=== PATIENT | male | born 1960 ===

== ENCOUNTER 2018-06-27 13:01 | Emergency (ER) | payer OTHER ==
[2018-06-27] MEDS ORDERED: Lidocaine Hydrochloride 5 ML INJ ONE (13:54)
--- NOTE | 2018-06-27 14:35 | RAD ---
PROCEDURE: Left Hand Radiographs. HISTORY: r/o fb COMPARISON: None. FINDINGS: BONES: Normal. No fracture. JOINTS: Normal. No osteoarthritic changes. SOFT TISSUES: No radiopaque foreign body identified. OTHER FINDINGS: None. IMPRESSION: No evidence of radiopaque foreign body.
[2018-06-27] MEDS ORDERED: Tmp-Smz 800 mg-160 mg DS Tab PO ONE (15:13)
[2018-06-27] MEDS ORDERED: Tetanus/Diphtheria Toxoids 0.5 ml Syringe IM ONE ×2 (15:14→15:22)
[2018-06-27] MEDS ORDERED: Tmp-Smz 800 mg-160 mg DS Tab ONE (15:22)
[2018-06-27 15:27] VITALS: BP 152/88; PULSE 86; RESP 20; TEMP 98.2
[2018-06-27 15:28] VITALS: O2SAT 100
--- NOTE | 2018-06-27 15:28 | C.PDOC ---
History Of Present Illness 57 y/o male pt presents to the ER c/o laceration to the left hand. Pt is right hand dominant. Pt reports he was working with metal at 12 pm today and a piece of metal caught his left hand. Pt has no other associated sx and complaints at this time. Time Seen by Provider: 06/27/18 13:55 Chief Complaint (Nursing): Abnormal Skin Integrity History Per: Patient History/Exam Limitations: no limitations Onset/Duration Of Symptoms: Hrs Current Symptoms Are (Timing): Still Present Location Of Injury: Left: Hand Quality Of Symptoms: denies: Painful, Itching, Swollen, Draining Past Medical History Reviewed: Historical Data, Nursing Documentation, Vital Signs Vital Signs: Last Vital Signs Temp 98.4 F 06/27/18 13:15 Pulse 89 06/27/18 13:15 Resp 18 06/27/18 13:15 BP 158/96 H 06/27/18 13:15 Pulse Ox 100 06/27/18 13:15 Family History: States: No Known Family Hx - Social History Hx Alcohol Use: No Hx Substance Use: No - Immunization History Hx Tetanus Toxoid Vaccination: No Hx Influenza Vaccination: No Review Of Systems Except As Marked, All Systems Reviewed And Found Negative. Constitutional: Negative for: Fever, Chills Skin: Positive for: Other (laceration on left hand ) Neurological: Negative for: Weakness, Numbness Physical Exam - Physical Exam Appears: Non-toxic, No Acute Distress Skin: Warm, Dry, No Rash Head: Atraumatic, Normacephalic Nose: Normal Oral Mucosa: Moist Throat: Normal Neck: Normal ROM, Supple Chest: Symmetrical Cardiovascular: Rhythm Regular Respiratory: Normal Breath Sounds Gastrointestinal/Abdominal: Soft, No Tenderness Back: No CVA Tenderness Extremity: Normal ROM (FROM on left hand; hand able to flex/ext ), Capillary Refill (<2 sec), No Deformity, No Swelling, Other (laceration on left hand palmar aspect over the first MC region. Laceration going from the proximal to distal MC about 7-8 cm. Laceraton is oozing, no active bleeding. ) Pulses: Left Radial: Normal Neurological/Psych: Oriented x3, Normal Speech, Normal Cognition, Normal Motor, Normal Sensation ED Course And Treatment O2 Sat by Pulse Oximetry: 100 (RA) Pulse Ox Interpretation: Normal - Other Rad left hand X-Ray: Read By Radiologist Interpretation: Accession No. : [id number]. Patient Name / ID : BENITA ADAMESL / [id number]. Exam Date : 06/27/2018 13:54:16 ( Approved ). Study Comment : Sex / Age : M / 57Y. Creator : Art Donahue MD. Dictator : Art Donahue MD. Brancher : Tobacco Hanger : Art Donahue MD. Approver2 : Report Date : 06/27/2018 14:32:08. My Comment : . PROCEDURE: Left Hand Radiographs. HISTORY: r/o fb. COMPARISON: None. FINDINGS: BONES: Normal. No fracture. JOINTS: Normal. No osteoarthritic changes. SOFT TISSUES: No radiopaque foreign body identified. OTHER FINDINGS: None. IMPRESSION: No evidence of radiopaque foreign body. Laceration - Laceration Repair left hand Wound Length (In cm): 7-8 Description Of Wound: Linear Wound Cleansed With: Betadine, Sterile Saline Anesthesia: Lidocaine 1% Wound Examination: Irrigated With Saline, No FB With Wound Exploration, No Tendon Injury With Wound Exploration Wound Closure: Suture (8) Suture Technique And Material Used: Interrupted, Prolene Wound Complexity: Simple Medical Decision Making Medical Decision Making: Impression: left hand laceration Plans: -- laceration repair -- L hand XR 06-28-17 14:44 Patient called on listed phone number to remind him to return in 7-10 days for suture removal. Patient did not fiber picker the phone, however will return in 1-2 days for wound check. Disposition - Disposition Referrals: Chasity Urban MD [Staff Provider] - Disposition: HOME/ ROUTINE Disposition Time: 15:42 Condition: IMPROVED Additional Instructions: Keep wound clean, elevate the hand, pain control and take bactrim as directed. Call Dr Urban for an appointment as soon as possible for follow up. Pt needs to return in 7 to 10 days for suture removal- Prescriptions: Ibuprofen [Motrin] 600 mg PO Q6 #20 tab Sulfamethoxazole/Trimethoprim [Bactrim Ds Tablet] 1 each PO Q12 #14 tablet Instructions: Laceration Repair, Wound Care (DC) Forms: SocialF5 (Kittitian) - Clinical Impression Clinical Impression: Hand laceration - Scribe Statement The provider has reviewed the documentation as recorded by the Scribroby Dean Do Provider Attestation: All medical record entries made by the Scribe were at my direction and personally dictated by me. I have reviewed the chart and agree that the record accurately reflects my personal performance of the history, physical exam, medical decision making, and the department course for this patient. I have also personally directed, reviewed, and agree with the discharge instructions and disposition.
== END 2018-06-27 15:43 | disposition home or self-care (01) ==
LOC: C.ER 13:01
DX: S61.412A Laceration without foreign body of left hand, initial encounter (principal); W23.0XXA Caught, crushed, jammed, or pinched between moving objects, initial encounter; Y92.89 Other specified places as the place of occurrence of the external cause; Y99.0 Civilian activity done for income or pay; Z23 Encounter for immunization